=== PATIENT | female | born 1985 | race Caucasian/White ===

== ENCOUNTER → 2021-01-11 12:05 | Outpatient (BNVA) | payer BC, SELFPAY | PROVIDERS: Visit Provider Family Medicine | DX: F32.A Depression, unspecified (principal); G47.30 Sleep apnea, unspecified; Z87.59 Personal history of other complications of pregnancy, childbirth and the puerperium; Z83.49 Family history of other endocrine, nutritional and metabolic diseases | CPT/HCPCS: 80053; 80061; 84439; 84443; 84481; 85025 ==

== ENCOUNTER → 2021-02-10 12:33 | Outpatient (BNVA) | payer BC, SELFPAY | PROVIDERS: Visit Provider Family Medicine | DX: Z01.419 Encounter for gynecological examination (general) (routine) without abnormal findings (principal) | CPT/HCPCS: 88175 ==

== ENCOUNTER → 2021-04-28 13:29 | Outpatient (BNVA) | payer BC, SELFPAY | PROVIDERS: PCP Nurse Practitioner Family; Visit Provider Nurse Practitioner Family | DX: R05.9 Cough, unspecified (principal); R06.02 Shortness of breath; Z86.16 Personal history of COVID-19 | CPT/HCPCS: 71046 ==

== ENCOUNTER → 2021-04-29 13:18 | Outpatient (BNVA) | payer BC, SELFPAY | PROVIDERS: Visit Provider Nurse Practitioner Family | DX: R05.9 Cough, unspecified (principal); R06.02 Shortness of breath; Z86.16 Personal history of COVID-19; J40 Bronchitis, not specified as acute or chronic | CPT/HCPCS: 80053; 85025 ==

== ENCOUNTER 2022-02-10 20:00 | Outpatient (CLI) | payer BC, SELFPAY | END 2022-02-10 20:01 | disposition home or self-care (01) | LOC: SLEEP 02-11 04:33 | PROVIDERS: Visit Provider Nurse Practitioner Family | DX: G47.33 Obstructive sleep apnea (adult) (pediatric) (principal) | CPT/HCPCS: 95810 ==

== ENCOUNTER 2022-04-18 10:41 | Emergency (ER) | payer BC, SELFPAY ==
[2022-04-18 10:42] VITALS: BP 211/107; PULSE 113; RESP 18; TEMP 36.4; O2SAT 97
[2022-04-18 10:51] VITALS: BP 211/107; PULSE 113; O2SAT 96
[2022-04-18] MEDS: diphenhydrAMINE 50 mg/mL SDV 1mL 25 MG IVP (11:13)
[2022-04-18] MEDS: famotidine 20 mg/2 mL INJ 40 MG IVP (11:13)
[2022-04-18 11:21] VITALS: PULSE 112; O2SAT 96
--- NOTE | 2022-04-18 11:37 | W.ED.ALLEREA ---
HPI - Allergic Reaction General: Chief complaint: Allergic Reaction Stated complaint: allergic REACTION Time Seen by Provider: 04/18/22 10:50 Source: patient Mode of arrival: EMS History of Present Illness: HPI narrative: 37-year-old female was getting allergy desensitization shots at [facility] she began to have reaction is fairly pronounced a lot of swelling stridor wheezing she was given subcutaneous epi x2 and transferred to the hospital via ambulance Dr. Arreola did call over and discussed with this briefly. On arrival here she is breathing without difficulty she still has some facial swelling. No stridor no difficulty enunciating words. Very scant expiratory wheeze. MD complaint: allergic reaction Onset (ago): minute(s) Exposure: medication Associated symptoms: Deny abdominal pain, difficulty breathing, dysphagia, dizziness, facial swelling, hoarseness, itching, lip swelling, nausea, rash, tongue swelling or vomiting Treatment prior to arrival: none and epinephrine Previous Allergic Reaction History: none Review of Systems Const: Denies: fever(s), chills, body aches, change in appetite, fatigue or malaise ENMT: Reports: swelling of lips/tongue; Denies: throat pain, odynophagia or hoarseness Card: Denies: chest pain, edema, dyspnea on exertion or orthopnea Resp: Reports: dyspnea and wheezing; Denies: productive cough or non-productive cough GI: Denies: abdominal pain, nausea, vomiting or dysphagia : Denies: flank pain, difficulty voiding, dysuria, urinary frequency or urinary urgency Skin/Breast: Reports: erythema Neuro: Denies: dizziness All/Imm: Denies: tongue swelling or facial swelling PFSH ED PFSH: Medical History Carpal tunnel syndrome, bilateral Gestational [-induced] hypertension without significant proteinuria, third trimester Surgical History History of carpal tunnel surgery of left wrist History of carpal tunnel surgery of right wrist History of tonsillectomy Family History Father Diabetes Cancer Mother Hypertension Social History Smoking and tobacco status: never smoked Second hand smoke exposure: No Alcohol intake: never Lives independently: No Household members: spouse and children Marital status: Number of children: 2 service: No Current occupational status: unemployed Current occupation: stay at home mom Current gender identity: Female Aniya/Restoration: Hinduism Special aniya needs: No Agree to transfusion: Yes Physical Exam Const: GENERAL APPEARANCE: cooperative and comfortable ORIENTATION/CONSCIOUSNESS: Yes awake, Yes oriented to person, Yes oriented to place and Yes oriented to time HENMT: COMMON NORMALS: normocephalic, atraumatic and hearing grossly normal bilaterally HEAD & SCALP: normocephalic and atraumatic OTHER: Mild swelling in the face and lips very slight swelling in the tongue with papal able to enunciate without any difficulty no stridor Resp: COMMON NORMALS: normal respiratory effort, No retractions and No use of accessory muscles AUSCULTATION: wheezes Cardio: COMMON NORMALS: regular rate, regular rhythm and No murmurs present (Cardio) RATE: regular rate RHYTHM: regular rhythm GI: COMMON NORMALS: Soft to palpation and No hepatosplenomegaly present AUSCULTATION: Yes normoactive bowel sounds PALPATION: Yes Soft to palpation, No Tenderness to palpation present (GI), No Guarding due to palpation present (GI) and Yes No hepatosplenomegaly present Extremity: COMMON NORMALS: normal to inspection, capillary refill normal, no clubbing, cyanosis or edema, no calf tenderness and no pedal edema Neuro: SENSORIUM/ORIENTATION: Yes oriented to person, Yes oriented to place and Yes oriented to time Skin: COMMON NORMALS: no rashes or lesions noted GENERAL SKIN EXAM: no rashes or lesions noted Course Vital Signs: Vital signs: Vital Signs Temperature 97.6 F 04/18/22 10:42 Pulse Rate 103 H 04/18/22 13:11 Respiratory Rate 16 04/18/22 13:11 Blood Pressure 194/99 04/18/22 11:51 Pulse Oximetry 95 04/18/22 13:11 Oxygen Delivery Me thod 04/18/22 10:42 MDM - Allergic Reaction Medical Decision Making Patient monitored for 2 hours she is doing much better flushing and swelling in her lips and eyes is completely resolved she has no wheezing whatsoever discharge patient home prednisone taper can use hydroxyzine as needed follow-up with Dr. Arreola as needed or scheduled for further desensitization if they do desire to follow through with this. Return if has any worsening symptoms. Medical Records I reviewed the patient's medical records. Lab Data I reviewed the patient's lab results. Discharge Plan Discharge Patient Disposition: Home Clinical Impression: Anaphylaxis Condition: Stable Prescriptions: New prednisone 20 mg tablet 20 mg PO TID Qty: 15 0RF Rx Instructions: 1 p.o. 3 times daily x3 days, 1 p.o. twice daily x2 days, 1 p.o. daily x2 days hydroxyzine HCl 25 mg tablet 25 mg PO Q6H PRN (Reason: itching/allergy symptoms) Qty: 20 0RF No Action cetirizine [Zyrtec] 10 mg tablet 10 mg PO BID epinephrine 0.3 mg/0.3 mL auto-injector See Rx Instructions .ROUTE .COMPLEX Rx Instructions: as directed as needed Discharge Orders: Discharge ED (Routine); Ordered 04/18/22 Ordered By: Romeo Oro Referrals: Jamila Jimenez NP [Primary Care Provider] - Discharge Diet: Usual diet Discharge Activity: Increase activity as tolerated Patient Instructions: Opioid Safety, Pain Management Activity Restrictions/Additional Instructions: You were seen today for an allergic reaction. He responded well to treatments with epinephrine antihistamines and steroids. Recommend he take a steroid taper and use antihistamines as needed follow-up with your doctor. Stand Alone Forms: Work/School Release Coding Level of Care Code ED Data Management Specialist for Nicole Thibodeaux
[2022-04-18 11:51] VITALS: BP 194/99; PULSE 106; O2SAT 100
[2022-04-18 13:11] VITALS: PULSE 103; RESP 16; O2SAT 95
== END 2022-04-18 13:12 | disposition home or self-care (01) ==
PROVIDERS: Emergency Provider Family Medicine; PCP Nurse Practitioner Family
DX: T78.2XXA Anaphylactic shock, unspecified, initial encounter (principal)
CPT/HCPCS: 96374; 96375; 99284; J1200; J2930; J3490

== ENCOUNTER → 2022-06-17 11:54 | Outpatient (BNVA) | payer BC, SELFPAY | PROVIDERS: PCP Nurse Practitioner Family; Visit Provider Nurse Practitioner Family | DX: E66.01 Morbid (severe) obesity due to excess calories (principal); F32.A Depression, unspecified | CPT/HCPCS: 80053; 80061; 83036; 84443 ==

== ENCOUNTER → 2022-06-27 13:51 | Outpatient (BNVA) | payer BC, SELFPAY | PROVIDERS: PCP Nurse Practitioner Family; Visit Provider Podiatrist Foot & Ankle Surgery | DX: M76.62 Achilles tendinitis, left leg (principal); M24.572 Contracture, left ankle | CPT/HCPCS: 73610; 73630 ==

== ENCOUNTER → 2022-11-30 13:02 | Outpatient (BNVA) | payer BC, SELFPAY | PROVIDERS: PCP Nurse Practitioner Family; Visit Provider Nurse Practitioner Family | DX: E66.01 Morbid (severe) obesity due to excess calories (principal); Z68.43 Body mass index [BMI] 50.0-59.9, adult; F32.A Depression, unspecified; G47.30 Sleep apnea, unspecified; E11.9 Type 2 diabetes mellitus without complications; Z23 Encounter for immunization | CPT/HCPCS: 80053; 80061; 83036 ==

== ENCOUNTER → 2023-03-21 11:21 | Outpatient (BNVA) | payer BC, SELFPAY | PROVIDERS: PCP Nurse Practitioner Family; Visit Provider Nurse Practitioner Family | DX: F32.A Depression, unspecified (principal); E11.9 Type 2 diabetes mellitus without complications; E66.01 Morbid (severe) obesity due to excess calories; Z79.899 Other long term (current) drug therapy | CPT/HCPCS: 80053; 80061; 83036; 84443; 85025 ==

== ENCOUNTER → 2023-07-13 10:46 | Outpatient (BNVA) | payer BC, SELFPAY | PROVIDERS: PCP Nurse Practitioner Family; Visit Provider Nurse Practitioner Family | DX: E11.9 Type 2 diabetes mellitus without complications (principal); F32.A Depression, unspecified; E66.01 Morbid (severe) obesity due to excess calories; Z68.43 Body mass index [BMI] 50.0-59.9, adult; G47.30 Sleep apnea, unspecified | CPT/HCPCS: 80053; 80061; 83036; 85025 ==

== ENCOUNTER → 2023-10-19 09:24 | Outpatient (BNVA) | payer BC, SELFPAY | PROVIDERS: PCP Nurse Practitioner Family; Visit Provider Nurse Practitioner Family | DX: E11.9 Type 2 diabetes mellitus without complications (principal); E66.01 Morbid (severe) obesity due to excess calories; F32.A Depression, unspecified; G47.30 Sleep apnea, unspecified; Z68.42 Body mass index [BMI] 45.0-49.9, adult | CPT/HCPCS: 80053; 80061; 83036; 85025 ==

== ENCOUNTER → 2024-01-09 12:46 | Outpatient (BNVA) | payer BC, SELFPAY | PROVIDERS: PCP Nurse Practitioner Family; Visit Provider Nurse Practitioner Family | DX: E66.01 Morbid (severe) obesity due to excess calories (principal); Z68.43 Body mass index [BMI] 50.0-59.9, adult | CPT/HCPCS: 80053; 80061; 83036; 84443; 85025 ==

== ENCOUNTER → 2024-03-07 09:39 | Outpatient (BNVA) | payer BC, SELFPAY | PROVIDERS: PCP Nurse Practitioner Family; Visit Provider Nurse Practitioner Family | DX: R05.3 Chronic cough (principal) | CPT/HCPCS: 71046 ==

== ENCOUNTER 2024-09-06 05:00 | Outpatient (RCR) | payer BC, SELFPAY | END 2024-10-06 23:59 | disposition home or self-care (01) | LOC: TPT 05:00 | PROVIDERS: Visit Provider Podiatrist Foot & Ankle Surgery | DX: M76.61 Achilles tendinitis, right leg (principal); M76.62 Achilles tendinitis, left leg | CPT/HCPCS: 97161 ==

== ENCOUNTER 2024-10-07 05:00 | Outpatient (RCR) | payer BC, SELFPAY | END 2024-11-05 23:59 | disposition home or self-care (01) | LOC: TPT 05:00 | PROVIDERS: Visit Provider Podiatrist Foot & Ankle Surgery | DX: M76.61 Achilles tendinitis, right leg (principal); M76.62 Achilles tendinitis, left leg | CPT/HCPCS: 97110; 97140 ==

== ENCOUNTER 2024-12-03 12:27 | Outpatient (RCR) | payer BC, SELFPAY | END 2024-12-06 23:59 | disposition home or self-care (01) | LOC: TPT 12:27 | PROVIDERS: Visit Provider Podiatrist Foot & Ankle Surgery | DX: M76.61 Achilles tendinitis, right leg (principal); M76.62 Achilles tendinitis, left leg | CPT/HCPCS: 97110; 97140 ==

== ENCOUNTER → 2024-12-12 14:04 | Outpatient (BNVA) | payer BC, SELFPAY | PROVIDERS: PCP Nurse Practitioner Family; Visit Provider Nurse Practitioner Family | DX: J02.9 Acute pharyngitis, unspecified (principal) | CPT/HCPCS: 86308 ==

== ENCOUNTER 2024-12-31 08:05 | Outpatient (RCR) | payer BC, SELFPAY | END 2025-01-05 23:59 | disposition home or self-care (01) | LOC: TPT 08:05 | PROVIDERS: PCP Nurse Practitioner Family; Visit Provider Podiatrist Foot & Ankle Surgery | DX: M76.61 Achilles tendinitis, right leg (principal); M76.62 Achilles tendinitis, left leg | CPT/HCPCS: 97110; 97140 ==